=== PATIENT | male | born 1985 | race Caucasian/White ===

== ENCOUNTER 2017-01-12 07:07 | Emergency (ER) | payer OTHER ==
[2017-01-12 07:18] VITALS: BP 135/78; PULSE 70; RESP 14; TEMP 98.1; O2SAT 96
--- NOTE | 2017-01-12 07:26 | UCPHY ---
H & P Patient Type: Established Chief Complaint Nursing Narrative: left eye d/c started last pm w s/s of "pink eye". no other complaints. Time Seen by Provider: 01/12/17 07:19 HPI/ROS: CHIEF COMPLAINT: [place] HISTORY OF PRESENT ILLNESS: Patient is a 31-year-old man who comes to the Urgent Care complaining of conjunctivitis. States that his symptoms began last night. He states that this is the 3rd time in the last 2 years that he has had conjunctivitis. He has small children. He states the last time he had this in failed traditional antibiotic drops and he was then changed to azithromycin ophthalmic. This worked for him. He is requesting this prescription. He has had yellow discharge. No fevers. Mild sinus congestion. Headache. No vision changes. REVIEW OF SYSTEMS: Constitutional: denies: chills, fever, recent illness, recent injury EENTM: See HPI Respiratory: denies: cough, shortness of breath Cardiac: denies: chest pain, irregular heart rate, lightheadedness, palpitations Gastrointestinal/Abdominal: denies: abdominal pain, diarrhea, nausea, vomiting, blood streaked stools Genitourinary: denies: dysuria, frequency, hematuria, pain Musculoskeletal: denies: joint pain, muscle pain Skin: denies: lesions, rash, jaundice, bruising Neurological: denies: headache, numbness, paresthesia, tingling, dizziness, weakness Hematologic/Lymphatic: denies: blood clots, easy bleeding, easy bruising Immunologic/allergic: denies: HIV/AIDS, transplant EXAM: GENERAL: Well-appearing, well-nourished and in no acute distress. HEAD: Atraumatic, normocephalic. EYES: Left eye with mucopurulent discharge, cornea clear, injected conjunctiva and cobblestone of eyelids. ENT: TMs normal, nares patent, oropharynx clear without exudates. Moist mucous membranes. NECK: Normal range of motion, supple without lymphadenopathy or JVD. LUNGS: Breath sounds clear to auscultation bilaterally and equal. No wheezes rales or rhonchi. HEART: Regular rate and rhythm without murmurs, rubs or gallops. ABDOMEN: Soft, nontender, normoactive bowel sounds. No guarding, no rebound. No masses appreciated. BACK: No CVA tenderness, no spinal tenderness, step-offs or deformities EXTREMITIES: Normal range of motion, no pitting or edema. No clubbing or cyanosis. NEUROLOGICAL: Cranial nerves II through XII grossly intact. Normal speech, normal gait. 5/5 strength, normal movement in all extremities, normal sensation PSYCH: Normal mood, normal affect. SKIN: Warm, dry, normal turgor, no visible rashes or lesions. Source: Patient Exam Limitations: No limitations - Personal History Current Tetanus Diphtheria and Acellular Pertussis (TDAP): Yes - Medical/Surgical History Hx Asthma: No Hx Chronic Respiratory Disease: No Hx Diabetes: No Hx Cardiac Disease: No Hx Renal Disease: No Hx Cirrhosis: No Other PMH: none - Family History Significant Family History: No pertinent family hx - Social History Smoking Status: Never smoked Alcohol Use: Sober Drug Use: None Constitutional: Initial Vital Signs Temperature (C) 36.7 C 01/12/17 07:16 Heart Rate 70 01/12/17 07:16 Respiratory Rate 14 01/12/17 07:16 Blood Pressure 135/78 H 01/12/17 07:16 O2 Sat (%) 96 01/12/17 07:16 O2 Delivery Mode Room Air Allergies/Adverse Reactions: No Known Allergies Allergy (Verified 01/12/17 07:10) Home Medications: Medication Instructions Recorded Azithromycin [Azasite] 2.5 ml OP BID #1 btl 01/12/17 Medical Decision Making ED Course/Re-evaluation: Patient has symptoms consistent with conjunctivitis. I will start him on antibiotic drops as he requests. He will follow up with [facility]. We discussed indications for returning. Differential Diagnosis: Partial list of the Differential diagnosis considered include but were not limited to; conjunctivitis, viral conjunctivitis, allergic reaction, and although unlikely based on the history and physical exam, I also considered trauma, corneal abrasion, glaucoma. I discussed these differential diagnoses and the plan with the patient as well as the usual and expected course. The patient understands that the diagnosis is provisional and that in medicine we are not always correct and that further workup is often warranted. Usual and customary warnings were given. All of the patient's questions were answered. The patient was instructed to return to the emergency department should the symptoms at all worsen or return, otherwise to followup with the physician as we discussed. Departure - Departure Disposition: Home, Routine, Self-Care Clinical Impression: Conjunctivitis Qualifiers: Conjunctivitis type: acute Acute conjunctivitis type: bacterial Laterality: left Qualified Code(s): H10.32 - Unspecified acute conjunctivitis, left eye Condition: Fair Instructions: Conjunctivitis (ED) Referrals: VENKATESH VOGT [Primary Care Provider] - As per Instructions Prescriptions: Azithromycin [Azasite] 2.5 ml OP BID #1 btl - PQRS PQRS Measurement: Not applicable
== END 2017-01-12 07:30 | disposition home or self-care (01) ==
LOC: CED 07:07
DX: H10.32 Unspecified acute conjunctivitis, left eye (principal)
CPT/HCPCS: G0463-PO